=== PATIENT | female | born 1995 | race Caucasian/White ===

== ENCOUNTER 2022-02-22 03:26 | Emergency (ER) | payer OTHER ==
[2022-02-22 04:04] VITALS: BP 112/76; PULSE 99; TEMP 97.4; BMI 29.2
[2022-02-22] MEDS ORDERED: FLUORESCEIN NA 1 EA STRIP OD ONE (05:07)
[2022-02-22] MEDS ORDERED: TETRACAINE 0.5% HCL 0.6ML DROPPER.BOTTLE OD ONE (05:08)
[2022-02-22] MEDS ORDERED: FLUORESCEIN NA 1 EA STRIP ONE (05:22)
[2022-02-22] MEDS ORDERED: TETRACAINE 0.5% OPHTH SOLN 2 ML BOTTLE ONE (05:22)
== END 2022-02-22 06:06 | disposition home or self-care (01) ==
LOC: JER 03:26
DX: H53.141 Visual discomfort, right eye (principal)
CPT/HCPCS: 99283-25